=== PATIENT | male | born 1985 | race Caucasian/White ===

== ENCOUNTER 2023-11-16 16:46 | Emergency (ER) | payer OTHER ==
[~2023-11-16] VITALS: Ht 193 cm; Wt 97.0 kg
[2023-11-16 18:06] VITALS: BP 146/64
== END 2023-11-16 18:07 | disposition home or self-care (01) ==
LOC: ED 16:46
DX: S01.01XA Laceration without foreign body of scalp, initial encounter (principal); W18.30XA Fall on same level, unspecified, initial encounter; W22.8XXA Striking against or struck by other objects, initial encounter; Y92.149 Unspecified place in prison as the place of occurrence of the external cause; Z88.0 Allergy status to penicillin
CPT/HCPCS: 12002; 99282